=== PATIENT | male | born 1990 | race African-American/Black ===

== ENCOUNTER 2019-05-18 16:13 | Emergency (ER) | payer OTHER ==
[~2019-05-18] VITALS: Ht 177.8 cm; Wt 65.9 kg
[2019-05-18] MEDS ORDERED: TRAZ-252 PO (16:32)
[2019-05-18] MEDS ORDERED: VALT1TAB PO (18:54)
[2019-05-18 18:55] VITALS: BP 139/81
[2019-05-18 21:05] LABS: CHLAMYDIA DNA AMPLIFICATION NEGATIVE (NEGATIVE); GC DNA AMPLIFICATION NEGATIVE (NEGATIVE)
== END 2019-05-18 18:57 | disposition home or self-care (01) ==
LOC: M ED 16:13
DX: N48.89 Other specified disorders of penis (principal); Z79.899 Other long term (current) drug therapy

== ENCOUNTER 2019-06-14 11:07 | Emergency (ER) | payer OTHER ==
[~2019-06-14] VITALS: Ht 177.8 cm; Wt 69.2 kg
[~2019-06-14 11:07] MED LIST: TRAZ-252 PO; VALT1TAB PO
[2019-06-14] MEDS ORDERED: VALT1TAB PO (12:39)
[2019-06-14] MEDS ORDERED: DOXY100C37 PO (12:39)
[2019-06-14 12:48] VITALS: BP 115/66
== END 2019-06-14 12:49 | disposition home or self-care (01) ==
LOC: M ED 11:07
DX: Z76.0 Encounter for issue of repeat prescription (principal); A60.02 Herpesviral infection of other male genital organs; I10 Essential (primary) hypertension; G47.00 Insomnia, unspecified; Z86.19 Personal history of other infectious and parasitic diseases; F17.220 Nicotine dependence, chewing tobacco, uncomplicated; Z79.899 Other long term (current) drug therapy

== ENCOUNTER 2019-08-27 14:01 | Emergency (ER) | payer OTHER ==
[~2019-08-27] VITALS: Ht 177.8 cm; Wt 69.6 kg
[~2019-08-27 14:01] MED LIST changes: +DOXY100C37 PO
[2019-08-27] MEDS ORDERED: VALT500T PO (17:28)
[2019-08-27] MEDS ORDERED: valACYclovir HCL 500 MG TAB PO ONE (17:30)
[2019-08-27 17:35] VITALS: BP 114/76
== END 2019-08-27 17:40 | disposition home or self-care (01) ==
LOC: M ED 14:01
DX: Z76.0 Encounter for issue of repeat prescription (principal); A60.00 Herpesviral infection of urogenital system, unspecified; Z79.899 Other long term (current) drug therapy

== ENCOUNTER → 2020-01-02 | Outpatient (REF) | payer OTHER ==
[~2020-01-02] MED LIST changes: +VALT500T PO
[2020-01-02 20:46] LABS: CHLAMYDIA DNA AMPLIFICATION NEGATIVE (NEGATIVE); GC DNA AMPLIFICATION NEGATIVE (NEGATIVE)
== END ==
LOC: M LAB REF 16:26
PROVIDERS: ATTEND Physician Assistant Medical
DX: Z11.3 Encounter for screening for infections with a predominantly sexual mode of transmission (principal)

== ENCOUNTER → 2020-04-11 | Outpatient (CLI) | payer OTHER, SELFPAY | LOC: M OUTALCOH 07:50 | PROVIDERS: ATTEND Psychiatry & Neurology Addiction Medicine | DX: Z03.89 Encounter for observation for other suspected diseases and conditions ruled out (principal) ==

== ENCOUNTER → 2020-04-24 | Outpatient (RCR) | payer SELFPAY | LOC: M OUTALCOH 04-17 09:14 | PROVIDERS: ATTEND Psychiatry & Neurology Addiction Medicine | DX: F10.20 Alcohol dependence, uncomplicated (principal) ==

== ENCOUNTER 2020-05-23 15:00 | Outpatient (RCR) | payer OTHER, SELFPAY | END 2020-05-25 | LOC: M OUTALCOH 15:00 | PROVIDERS: ATTEND Psychiatry & Neurology Addiction Medicine | DX: F10.20 Alcohol dependence, uncomplicated (principal) ==

== ENCOUNTER 2020-06-20 15:53 | Outpatient (RCR) | payer SELFPAY | END 2020-06-25 | LOC: M OUTALCOH 15:53 | PROVIDERS: ATTEND Psychiatry & Neurology Addiction Medicine | DX: F10.20 Alcohol dependence, uncomplicated (principal) ==

== ENCOUNTER 2020-07-23 14:21 | Outpatient (RCR) | payer SELFPAY | END 2020-07-25 | LOC: M OUTALCOH 14:21 | PROVIDERS: ATTEND Psychiatry & Neurology Addiction Medicine | DX: F10.20 Alcohol dependence, uncomplicated (principal) ==

== ENCOUNTER 2020-08-20 15:34 | Outpatient (RCR) | payer SELFPAY | END 2020-08-25 | LOC: M OUTALCOH 15:34 | PROVIDERS: ATTEND Psychiatry & Neurology Addiction Medicine | DX: F10.20 Alcohol dependence, uncomplicated (principal) ==

== ENCOUNTER 2020-08-27 14:58 | Outpatient (RCR) | payer SELFPAY | END 2020-09-24 | LOC: M OUTALCOH 14:58 | PROVIDERS: ATTEND Psychiatry & Neurology Addiction Medicine | DX: F10.20 Alcohol dependence, uncomplicated (principal) ==

== ENCOUNTER → 2023-03-06 | Outpatient (REF) | payer OTHER ==
[~2023-03-06] MED LIST changes: +DOXY-443 PO; -DOXY100C37 PO
[2023-03-06 18:46] LABS: GC DNA AMPLIFICATION NEGATIVE (NEGATIVE)
== END ==
LOC: M LAB REF 16:25
PROVIDERS: ATTEND Physician Assistant
DX: N48.89 Other specified disorders of penis (principal)

== ENCOUNTER → 2023-04-04 | Outpatient (REF) | payer OTHER ==
[2023-04-04 20:13] LABS: GC DNA AMPLIFICATION NEGATIVE (NEGATIVE)
== END ==
LOC: M LAB REF 17:44
PROVIDERS: ATTEND Physician Assistant Medical
DX: Z20.2 Contact with and (suspected) exposure to infections with a predominantly sexual mode of transmission (principal)

== ENCOUNTER 2023-07-01 10:47 | Emergency (ER) | payer OTHER ==
[~2023-07-01] VITALS: Ht 177.8 cm; Wt 67.3 kg
[2023-07-01 10:48] VITALS: BP 144/95; TEMP 97.8; O2SAT 98
== END 2023-07-01 13:08 | disposition left against medical advice (07) ==
LOC: M ED 10:47
DX: Z53.21 Procedure and treatment not carried out due to patient leaving prior to being seen by health care provider (principal)

== ENCOUNTER → 2023-10-14 | Outpatient (REF) | payer OTHER ==
[2023-10-14 14:03] LABS: CHLAMYDIA DNA AMPLIFICATION NEGATIVE (NEGATIVE); GC DNA AMPLIFICATION NEGATIVE (NEGATIVE)
== END ==
LOC: M LAB REF 12:16
PROVIDERS: ATTEND Physician Assistant
DX: Z20.2 Contact with and (suspected) exposure to infections with a predominantly sexual mode of transmission (principal); Z11.3 Encounter for screening for infections with a predominantly sexual mode of transmission; Z11.59 Encounter for screening for other viral diseases; Z72.89 Other problems related to lifestyle